=== PATIENT | male | born 1995 | race Two or more races ===

== ENCOUNTER 2025-04-15 09:15 | Inpatient (IN) | payer MEDICAID, SELFPAY ==
[2025-04-15] VITALS (9 sets, daily range): BP systolic 137–153; BP diastolic 82–93; PULSE 74–95; RESP 13–20; TEMP 36.2–37.3; O2SAT 97–100; BMI 31.6; BMI 31.5
--- NOTE | 2025-04-15 09:23 | EKG_ITS ---
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
--- NOTE | 2025-04-15 09:32 | XR_ITS ---
Examination: AP chest single view. Technique: AP portable semiupright chest single view. Date and time: February 12, 2025, 0942 hrs. Indications: Onset chest pain weakness today. Findings: Mild prominence left ventricle which may relate to the AP portable technique. No pneumonia or pulmonary edema. The osseous structures are intact. Impression: No active disease.
--- NOTE | 2025-04-15 09:32 | EDNOTE_ITS ---
ED GI Bleed RME/HPI General Chief complaint: Nausea/Vomiting/Diarrhea Stated complaint: Vomiting blood today, drinks alcohol Time Seen by Provider: 04/15/25 09:19 Arrival date/time: 04/15/25 09:15 Limitations: no limitations RME / HPI RME / HPI Narrative: DR. PHUC GRADY ED EVALUATION: 29-year-old male presents to the Emergency Department with hematemesis this morning about an hour prior to arrival. He reports consuming a 12-pack of beers and admits to cocaine use yesterday (smoked, not injected). Last drink was last night and vomited blood at about 830 AM. He denies abdominal pain, dysuria, or blood in stool, with bowel movements reported as normal. No known history of cirrhosis. No history of alcohol withdrawals. Patient also has a history of cocaine use. Related Data Allergies Allergy/AdvReac Type Severity Reaction Status Date / Time No Known Drug Allergies Allergy Verified 04/15/25 09:21 Review of Systems Review of Systems Systems Reviewed: All systems reviewed, normal except as documented Past Medical History Social History SMOKING STATUS: Current every day smoker ED Exam General Limitations: Present no limitations General appearance: Present alert, in no apparent distress and other (Worried appearing, appears uncomfortable, no resting tremor ) Head Head exam: Present atraumatic, normocephalic and normal inspection Eye Eye exam: Present normal appearance, PERRL and EOMI ENT ENT exam: Present normal exam, normal oropharynx and mucous membranes moist Neck Neck exam: Present normal inspection, full ROM and trachea midline Chest Chest inspection: Present normal inspection and symmetric chest wall rise Respiratory Respiratory exam: Present normal lung sounds bilaterally; Absent respiratory distress, wheezes or stridor Cardiovascular Cardiovascular exam: Present regular rate, normal rhythm and normal heart sounds Abdominal Exam Abdominal exam: Present soft; Absent distention, tenderness, guarding or rebound Extremities Exam Extremities exam: Present normal inspection and full ROM Back Exam Back exam: Present normal inspection and full ROM Neurological Exam Neurological exam: Present alert, oriented X3 and CN II-XII intact Psychiatric Psychiatric exam: Present normal affect and normal mood Skin Skin exam: Present warm, dry, intact and normal color Course Quality Measures none Orders Category Date Time Status Blood Sugar Check-Sandostatin Q1HR Care 04/15/25 09:41 Active EKG (ED ONLY) *Do not use* NOW Care 04/15/25 09:23 Completed Insert IV NOW Care 04/15/25 09:40 Completed NPO NOW Care 04/15/25 09:33 Active Consult to Gastroenterology Stat Cons 04/15/25 10:21 Ordered Diet NPO (NOW) Diet 04/15/25 09:33 Active CXR [XR chest 1V] Stat Exams 04/15/25 09:32 Taken EKG (ED Only) Stat Exams 04/15/25 09:23 Draft CBC Stat Lab 04/15/25 09:34 Completed CMP [Comprehensive Metabolic Panel] Stat Lab 04/15/25 09:34 Completed Drug Screen,Urine Stat Lab 04/15/25 09:32 Ordered PT [Prothrombin Time with INR] Stat Lab 04/15/25 09:34 Completed Troponin I Stat Lab 04/15/25 09:34 Completed Type and Screen Stat Lab 04/15/25 09:34 Received UA, C/S IF [Urinalysis, C/S if Indicated] Stat Lab 04/15/25 09:32 Ordered Octreotide Acet Inj [SandoSTATIN Inj] Med 04/15/25 09:32 Discontinued 50 mcg IV X1 ONE Ondansetron Inj [Zofran Inj] Med 04/15/25 09:32 Discontinued 4 mg IVP X1 ONE Pantoprazole/Ns 80Mg IV Premix [Protonix/NS 80mg IV Med 04/15/25 09:33 Discontinued Premix] 80 mg in 100 ml IV X1 Pantoprazole/Ns 80Mg IV Premix [Protonix/NS 80mg IV Med 04/15/25 09:48 Active Premix] 80 mg in 100 ml IV X1 Sodium Chloride 0.9% [Ns] 100 ml Med 04/15/25 09:45 Active Octreotide Acet Inj [SandoSTATIN Inj] 1,000 mcg IV 50 mcg/hr Sodium Chloride 0.9% [Ns] 100 ml Med 04/16/25 05:45 Pending Octreotide Acet Inj [SandoSTATIN Inj] 1,000 mcg IV 50 mcg/hr Vital Signs Vital signs: Vital Signs Temperature 99.1 F 04/15/25 09:35 Pulse Rate 92 04/15/25 09:35 Respiratory Rate 16 04/15/25 09:35 Blood Pressure 152/88 H 04/15/25 09:35 Pulse Oximetry (%) 97 04/15/25 09:35 Oxygen Delivery Method Room Air 04/15/25 09:35 GI Bleed MDM Narrative MDM Narrative:: Patient is a 29-year-old male with medical history notable for alcohol use disorder that is in Emergency Department with 1 episode of hematemesis, large- volume for the patient. Vital signs and exam as listed. Concern for esophageal bleed, Winter-Summers tear, esophagitis, gastritis among others. Patient was placed in resuscitation room, IV access obtained. Ordered labs, EKG, chest x- ray, IV Protonix, octreotide and other medications for symptom relief. Patient will benefit from evaluation by our rug cutter helper as well. My interpretation: EKG performed at 0925 hours, sinus rhythm, rate 89, normal intervals, non specific T wave changes, not a cardiac alert Labs without acute hematologic or significant metabolic abnormality, patient's LFTs not grossly abnormal. Consulted on-call rug cutter helper Dr. Ruiz, request patient be n.p.o., will perform an endoscopy today. Consulted [facility], kindly accepted patient for admission I, Lavinia Umanzor, am scribing for and in the presence of Dr. Thorne. Patient data External records reviewed:: None (no previous visits) Clinical information provided by:: patient Social determinants that could affect healthcare access:: substance use Patient has the following chronic illnesses:: Denies any PMHx, surgeries, daily medications, or known allergies. How is presenting disease/condition affected by chronic disease/condition?: no chronic disease Evaluation data The following diagnostics were reviewed and interpreted by me:: lab results, radiology exam(s) and EKG tracing(s) (My interpretation: EKG performed at 0925 hours, sinus rhythm, rate 89, normal intervals, non specific T wave changes, not a cardiac alert) Lab and/or radiology exams considered but not ordered:: none Interpretation Summary: Patient denies any tobacco, alcohol, or substance use. Medications / Prescriptions Medications or Prescriptions considered but not ordered:: none Medication administrations:: Medication Administration History Pantoprazole Sodium (Protonix/Ns 80mg Iv Premix) 80 mg in 100 mls @ 10 mls/hr IV X1 ONE Stop: 04/15/25 19:47 Last Admin: 04/15/25 10:11 Dose: 10 mls/hr Documented By: ED Octreotide Acetate 1,000 mcg/ (Sodium Chloride) 102 mls @ 5.1 mls/hr IV .Q20H PHILLIP; Protocol Stop: 04/16/25 05:44 Last Admin: 04/15/25 10:10 Dose: 50 mcg/hr, 5.1 mls/hr Documented By: ED Octreotide Acetate 1,000 mcg/ (Sodium Chloride) 102 mls @ 5.1 mls/hr IV .Q20H PHILLIP; Protocol Stop: 04/20/25 09:44 Discontinued Medications Pantoprazole Sodium (Protonix/Ns 80mg Iv Premix) 80 mg in 100 mls @ 400 mls/hr IV X1 ONE Stop: 04/15/25 09:47 Last Infusion: 04/15/25 09:53 Dose: Infused Documented By: Admin: 04/15/25 09:38 Dose: 400 mls/hr Documented By: DO Octreotide Acetate (Octreotide Acet Inj 50 Mcg/Ml Vial) 50 mcg IV X1 ONE Stop: 04/15/25 09:33 Last Admin: 04/15/25 09:42 Dose: 50 mcg Documented By: DO Ondansetron HCl (Ondansetron Inj 2 Mg/Ml Inj 2 Ml) 4 mg IVP X1 ONE; Protocol Stop: 04/15/25 09:33 Last Admin: 04/15/25 09:42 Dose: 4 mg Documented By: DO see above if any Consultations Consultation(s) initiated? (list below): Yes Diagnosis GI bleed differential diagnosis: other (Winter-Summers tear, peptic ulcer disease, and variceal bleed.) Most likely diagnosis given after review of the tests above:: Hematemesis, alcohol use disorder Admission Indicated Admission indicated?: indicated Admission Request Was there a request for admission?: Yes Admission Attestation Admission request attestation: Discussed case with Hospitalist service regarding admission. Discussed patients ED course, exam findings, labs, and radiology results. The Hospitalist [agrees] to accept the patient for admission. Disposition Plan Disposition Plan: Admit Critical Care Time Critical Care Time Critical Care Time: Yes Total Critical Care Time (min.): 45 Attestation: Due to a high probability of clinically significant, life threatening deterioration, the patient required my highest level of preparedness to intervene emergently and I personally spent this critical care time directly and personally managing the patient. This critical care time included obtaining a history; examining the patient; pulse oximetry; ordering and review of studies; arranging urgent treatment with development of a management plan; evaluation of patient's response to treatment; frequent reassessment; and, discussions with other providers. This critical care time was performed to assess and manage the high probability of imminent, life-threatening deterioration that could result in multi-organ failure. It was exclusive of separately billable procedures and treating other patients and teaching time. Please see MDM section and the rest of the note for further information on p atient assessment and treatment. Discharge Plan Plan Patient Disposition: HOME (Self Care) Prescriptions/Referrals Referrals: No Primary/Family,Physician [Primary Care Provider] - In 1 week Problem List Clinical Impression: Hematemesis of fresh blood Patient/Caregiver Discharge Instructions Print Language: Taiwanese Stand Alone Forms: Antonia Award Info., Patient Portal Info Letter
--- NOTE | 2025-04-15 09:34 | PD.EDNV ---
Nausea/Vomit./Diarrhea-RME/HPI General Chief complaint: Nausea/Vomiting/Diarrhea Stated complaint: Vomiting blood today, drinks alcohol Time Seen by Provider: 04/15/25 09:19 Arrival date/time: 04/15/25 09:15 Related Data Allergies Allergy/AdvReac Type Severity Reaction Status Date / Time No Known Drug Allergies Allergy Verified 04/15/25 09:21 Course Orders Category Date Time Status EKG (ED ONLY) *Do not use* NOW Care 04/15/25 09:23 Active NPO NOW Care 04/15/25 09:33 Active Diet NPO (NOW) Diet 04/15/25 09:33 Active CXR [XR chest 1V] Stat Exams 04/15/25 09:32 Ordered EKG (ED Only) Stat Exams 04/15/25 09:23 Draft CBC Stat Lab 04/15/25 09:32 Ordered CMP [Comprehensive Metabolic Panel] Stat Lab 04/15/25 09:32 Ordered Drug Screen,Urine Stat Lab 04/15/25 09:32 Ordered PT [Prothrombin Time with INR] Stat Lab 04/15/25 09:32 Ordered Troponin I Stat Lab 04/15/25 09:32 Ordered Type and Screen Stat Lab 04/15/25 09:32 Ordered UA, C/S IF [Urinalysis, C/S if Indicated] Stat Lab 04/15/25 09:32 Ordered Octreotide Acet Inj [SandoSTATIN Inj] Med 04/15/25 09:32 Discontinued 50 mcg IV X1 ONE Ondansetron Inj [Zofran Inj] Med 04/15/25 09:32 Discontinued 4 mg IVP X1 ONE Pantoprazole/Ns 80Mg IV Premix [Protonix/NS 80mg IV Med 04/15/25 09:33 Active Premix] 80 mg in 100 ml IV X1 Pantoprazole/Ns 80Mg IV Premix [Protonix/NS 80mg IV Med 04/15/25 09:48 Active Premix] 80 mg in 100 ml IV X1 Sodium Chloride 0.9% [Ns] 100 ml Med 04/15/25 09:33 Ordered Octreotide Acet Inj [SandoSTATIN Inj] 1,000 mcg IV 50 mcg/hr Nausea/Vomiting/Diarrhea MDM Narrative MDM Narrative:: Patient is a 29-year-old male with medical history notable for alcohol use disorder that is in Emergency Department with 1 episode of hematemesis, large-volume for the patient. Vital signs and exam as listed. Concern for esophageal bleed, Winter-Summers tear, esophagitis, gastritis among others. Patient was placed in resuscitation room, IV access obtained. Ordered labs, EKG, chest x-ray, IV Protonix, octreotide and other medications for symptom relief. Patient will benefit from evaluation by our litigation counsel as well. Patient data External records reviewed:: None Clinical information provided by:: patient Social determinants that could affect healthcare access:: alcohol use Patient has the following chronic illnesses:: See MDM How is presenting disease/condition affected by chronic disease/condition?: exacerbated by Evaluation data The following diagnostics were reviewed and interpreted by me:: lab results, radiology exam(s) and EKG tracing(s) Interpretation Summary: See MDM Medications / Prescriptions Medications / Prescriptions considered but not ordered:: None Medication administrations:: Medication Administration History Pantoprazole Sodium (Protonix/Ns 80mg Iv Premix) 80 mg in 100 mls @ 400 mls/hr IV X1 ONE Stop: 04/15/25 09:47 Pantoprazole Sodium (Protonix/Ns 80mg Iv Premix) 80 mg in 100 mls @ 10 mls/hr IV X1 ONE Stop: 04/15/25 19:47 Octreotide Acetate 1,000 mcg/ (Sodium Chloride) 102 mls @ 5.1 mls/hr IV .Q20H PHILLIP; Protocol Stop: 04/20/25 09:33 Discontinued Medications Octreotide Acetate (Octreotide Acet Inj 50 Mcg/Ml Vial) 50 mcg IV X1 ONE Stop: 04/15/25 09:33 Ondansetron HCl (Ondansetron Inj 2 Mg/Ml Inj 2 Ml) 4 mg IVP X1 ONE; Protocol Stop: 04/15/25 09:33 See above Consultations Consultation(s) initiated? (list below): Yes Discharge Plan Patient/Caregiver Discharge Instructions Print Language: Grenadian
[2025-04-15] MEDS: PANTOPRAZOLE/NS 80MG IV PREMIX 80 MG/100 ML BAG 400 MG IV (09:38)
[2025-04-15] MEDS: OCTREOTIDE ACET INJ 50 mCg/ML VIAL IV (09:42)
[2025-04-15] MEDS: ONDANSETRON INJ 2 MG/ML INJ 2 ML 4 MG IVP (09:42)
[2025-04-15 09:51] LABS: Basophils # (Auto) 0.1 Thou/mm3 (0.0-0.2); Basophils % (Auto) 1 % (0-2.5); Eosinophils # (Auto) 0.1 Thou/mm3 (0.0-0.5); Eosinophils % (Auto) 1 % (0-10); Hematocrit 41.9 % (41.0-53.0); Hemoglobin 15.0 g/dL (13.5-16.0); Immature Granulocytes Auto 0.05 Thou/mm3 (0.00-0.00); Lymphocytes # (Auto) 1.8 Thou/mm3 (1.0-4.8); Lymphocytes % (Auto) 23 % (10-50); Mean Corpuscular HGB Conc 35.8 g/dl (31.0-37.0); Mean Corpuscular Hemoglobin 31.6 pg (25.0-35.0); Mean Corpuscular Volume 88 fL (80-100); Monocytes # (Auto) 0.9 Thou/mm3 (0.0-0.8); Monocytes % (Auto) 12 % (0-12); Neutrophils # (Auto) 5.0 Thou/mm3 (1.8-7.7); Neutrophils % (Auto) 63 % (37-80); Nucleated Red Blood Cell # 0.00 Thou/mm3 (0.00-0.00); Nucleated Red Blood Cell % 0 /100 WBC (0); Platelet Count 275 Thou/mm3 (140-440); RDW Standard Deviation 39.8 fL (35.1-43.9); Red Blood Count 4.75 Miln/mm3 (4.50-5.90); White Blood Count 8.0 Thou/mm3 (3.8-10.6)
[2025-04-15 10:06] LABS: INR 1.0 (0.9-1.3); Prothrombin Time 11.3 Seconds (9.0-12.2)
[2025-04-15 10:10] LABS: Alanine Aminotransferase 69 U/L (10-49); Albumin, Serum 4.8 gm/dL (3.5-5.0); Albumin/Globulin Ratio 2.1 (1.2-2.2); Alkaline Phosphatase 74 U/L (46-116); Anion Gap 12 (7-16); Aspartate Amino Transferase 35 U/L (0-34); BUN/Creatinine Ratio 10 Ratio (12-20); Bilirubin,Total 0.3 mg/dL (0.3-1.2); Blood Urea Nitrogen 9 mg/dL (9-23); Calcium 9.1 mg/dL (8.3-10.6); Calcium (Corrected) 9.1 mg/dL (8.5-10.1); Carbon Dioxide 23.2 mMol/L (20.0-31.0); Chloride 108 mMol/L (98-107); Creatinine (Component) 0.9 mg/dL (0.6-1.3); Estimated Creatinine Clearance 124.5 mL/min (>60); Globulin 2.3 gm/dL (2.3-3.5); Glucose 112 mg/dL (74-106); Osmolality,Calculated 284 (275-295); Potassium 3.7 mMol/L (3.4-5.1); Sodium 143 mMol/L (136-145); Total Protein 7.1 gm/dL (5.7-8.2); Troponin I < 0.002 ng/mL (0.0-0.045); eGFR > 60 See Note
[2025-04-15] MEDS: OCTREOTIDE ACET INJ 1,000 MCG in SODIUM CHLORIDE 0.9% 100 ML 5.1 MCG IV (10:10)
[2025-04-15] MEDS: PANTOPRAZOLE/NS 80MG IV PREMIX 80 MG/100 ML BAG 10 MG IV (10:11)
[2025-04-15 12:11] LABS: Collection Type, Urine Clean Catch; Squamous Epithelial Cell,Urine 0 /hpf (0-5)
[2025-04-15 12:16] LABS: Bilirubin,Urine Negative (Negative); Blood,Urine Negative (Negative); Clarity,Urine Clear (Clear/Hazy); Color,Urine Lt-Yellow (Lt Yel-Yel); Culture Indicated,Urine Not Indicated; Glucose, Urine Negative (Negative); Ketones,Urine Negative (Negative); Leukocyte Esterase,Urine Negative (Negative); Nitrite,Urine Negative (Negative); PH,Urine 6.0 (5.0-7.0); Protein,Urine Negative (Neg - Trace); RBC,Urine 1 /hpf (0-3); Specific Gravity,Urine 1.021 (1.001-1.035); Urobilinogen,Urine Negative mg/dL (0.0-1.0); WBC,Urine 2 /hpf (0-5)
[2025-04-15 12:50] LABS: Amphetamine/Methamp Scrn,U Negative (Negative); Barbiturate Screen,Urine Negative (Negative); Benzodiazepines Screen,Urine Negative (Negative); Benzoylecgonine Screen, Ur Positive (Negative); Fentanyl Screen,Urine Negative (Negative); Opiate Screen,Urine Negative (Negative); THC Screen,Urine Negative (Negative)
--- NOTE | 2025-04-15 13:19 | ESHP_ITS ---
Documentation for date of: 04/15/25 [facility] History of Present Illness Chief complaint: Hematemesis History of present illness: This patient is a 29 year old male with no known past medical history who presented to [facility] ED on 04/15 from home with a chief complaint of hematemesis. The patient was admitted for management of upper GI bleed. The patient states that on the day before, the patient drank more alcohol than usual, about 12-16 bottles of beer, and when he woke up this morning, the patient vomited and noticed a small amount of blood in his vomit. The patient with then proceeded to vomit more for total of 4 times. According to the patient, this has never happened before, and he was not having any vomiting the day before. The patient does endorse drinking about 5-10 bottles of beer daily and has done so for about 4 to 5 years. The patient states that he has not had anything to eat today as result of this vomiting. The patient does have plans to go to the [facility] for her scheduled appointment tomorrow, and he cannot reschedule as he has already rescheduled previously. The patient is hoping to leave early tomorrow morning, or tonight if possible. Patient denies any fevers, chills, cough, chest pain, throat pain, generalized weakness, and abdominal pain. Patient also denies anxiety as well as any visual, auditory, and tactile hallucinations. ED Course: Initial vitals were significant for blood pressure of 152/88. Initial labs significant for AST 35 and ALT 69. Hemoglobin unremarkable at 13.0 and troponin less than 0.002. Urine toxicology positive for cocaine. Chest x-ray negative. Patient was started on IV Protonix and octreotide. GI was consulted, who plans to do endoscopy later today. 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 Skin: Warm, dry, intact. Head: Normocephalic, atraumatic. Eye: Slightly injected conjunctiva, PERRL. Cardiovascular: Regular rate and rhythm, no murmur, +S1/S2. Respiratory: Lungs are clear to auscultation, respirations unlabored, no crackles, no wheezing. Gastrointestinal: Soft, nontender, non-distended. No guarding or rebound tenderness. Extremities: No edema, no cyanosis, no clubbing. Neuro: No focal deficits observed. Conversant, moving all extremities. No overt cerebellar signs/incoordination. Psychiatric: Cooperative, appropriate affect. Results: Labs 04/15/25 09:34 04/15/25 09:34 Labs: Short CBC 04/15/25 Range/Units 09:34 WBC 8.0 (3.8-10.6) Thou/mm3 Hgb 15.0 (13.5-16.0) g/dL Hct 41.9 (41.0-53.0) % Plt Count 275 (140-440) Thou/mm3 BMP 04/15/25 09:34 Sodium 143 Potassium 3.7 Chloride 108 H Carbon Dioxide 23.2 BUN 9 Creatinine 0.9 Glucose 112 H Calcium 9.1 Cardiac Enzymes 04/15/25 Range/Units 09:34 Troponin I < 0.002 (0.0-0.045) ng/mL Liver Function 04/15/25 Range/Units 09:34 Total Bilirubin 0.3 (0.3-1.2) mg/dL AST 35 H (0-34) U/L ALT 69 H (10-49) U/L Alkaline Phosphatase 74 (46-116) U/L Albumin 4.8 (3.5-5.0) gm/dL Urine 04/15/25 Range/Units 12:00 Urine Color Lt-Yellow (Lt Yel-Yel) Urine Clarity Clear (Clear/Hazy) Urine pH 6.0 (5.0-7.0) Ur Specific [place] 1.021 (1.001-1.035) Urine Protein Negative (Neg - Trace) Urine Glucose (UA) Negative (Negative) Quality Measures Quality Measures VTE prophylaxis Medications Home Medications and Allergies Home Medications ?Medication ?Instructions ?Recorded ?Confirmed ?Type No Known Home Medications 04/15/2503/20 History Allergies Allergy/AdvReac Type Severity Reaction Status Date / Time No Known Drug Allergies Allergy Verified 04/15/25 09:21 Visit Medications Diazepam (Diazepam Inj 5 Mg/Ml Vial 2 Ml) 2.5 mg IVP Q2HR PRN PRN Reason: CIWA SCORE 8-13 Stop: 04/20/25 10:30 Diazepam (Diazepam Inj 5 Mg/Ml Vial 2 Ml) 5 mg IVP Q2HR PRN PRN Reason: CIWA SCORE 14-19 Stop: 04/20/25 10:30 Diazepam (Diazepam Inj 5 Mg/Ml Vial 2 Ml) 10 mg IVP Q2HR PRN PRN Reason: CIWA SCORE 20-25 Stop: 04/20/25 10:30 Pantoprazole Sodium (Protonix/Ns 80mg Iv Premix) 80 mg in 100 mls @ 10 mls/hr IV X1 ONE Stop: 04/15/25 19:47 Last Admin: 04/15/25 10:11 Dose: 10 mls/hr Octreotide Acetate 1,000 mcg/ (Sodium Chloride) 102 mls @ 5.1 mls/hr IV .Q20H PHILLIP; Protocol Stop: 04/16/25 05:44 Last Admin: 04/15/25 10:10 Dose: 50 mcg/hr, 5.1 mls/hr Octreotide Acetate 1,000 mcg/ (Sodium Chloride) 102 mls @ 5.1 mls/hr IV .Q20H PHILLIP; Protocol Stop: 04/20/25 09:44 Ondansetron HCl (Ondansetron Inj 2 Mg/Ml Inj 2 Ml) 4 mg IVP Q6H PRN; Protocol PRN Reason: NAUSEA OR VOMITING Stop: 05/15/25 10:30 Discontinued Medications Pantoprazole Sodium (Protonix/Ns 80mg Iv Premix) 80 mg in 100 mls @ 400 mls/hr IV X1 ONE Stop: 04/15/25 09:47 Last Infusion: 04/15/25 09:53 Dose: Infused Octreotide Acetate (Octreotide Acet Inj 50 Mcg/Ml Vial) 50 mcg IV X1 ONE Stop: 04/15/25 09:33 Last Admin: 04/15/25 09:42 Dose: 50 mcg Ondansetron HCl (Ondansetron Inj 2 Mg/Ml Inj 2 Ml) 4 mg IVP X1 ONE; Protocol Stop: 04/15/25 09:33 Last Admin: 04/15/25 09:42 Dose: 4 mg Assessment & Plan Plan This patient is a 29 year old male with no known past medical history who presented to [facility] ED on 04/15 from home with a chief complaint of hematemesis. The patient was admitted for management of upper GI bleed. #GI bleed, upper Patient presented to ED with an episode of blood in vomit x 4 started on the morning of the patient's admission date. Patient has a long history of excessive alcohol use and was drinking more than usual the day before. Patient does not appear symptomatic at this time and hemoglobin on admission was stable. Did not appear to be having any bloody vomitus on admission. DDx: Esophageal varices, Winter-Summers tear, peptic ulcer, malignancy in upper GI tract Plan: GI consulted, appreciate recommendations, plans for endoscopy on 04/15 Patient n.p.o. Protonix drip Octreotide drip 2 large-bore IVs Continue to monitor, will transfuse PRBC if hemoglobin less than 7 per protocol #Transaminitis Patient noted to have elevated LFTs on admission. While the patient does have a history of excessive alcohol use, the pattern does not necessarily fit transaminitis secondary to chronic alcohol use. Patient does not have any known history of cirrhosis at time of admission. Plan: To assess for possible cirrhosis Hepatitis panel ordered, pending Continue to monitor daily #Hypertension Patient does not have any history of hypertension noted, but does use cocaine, which may be the cause of the patient's elevated blood pressure during ED stay. Plan: Continue to monitor Will start antihypertensives if patient continues to be consistently hypertensive #Alcohol abuse Patient states that he drinks on average about 5-10 bottles of beer daily and has done so for about the past 4 to 5 years. Patient's last drink was the night prior to admission. On admission, patient denied any auditory, visual, and tactile hallucinations. Also denies any anxiousness on admission. Plan: [facility] protocol Will plan to have social sciences department chair certified alcohol and drug counselor the patient prior to discharge #Cocaine use Patient has a history of cocaine use for unspecified amount of time. Patient was noted to be positive for cocaine on urine toxicology on admission. Cocaine use may be contributing to why the patient presented with hematemesis during this admission. Plan: Counseled patient on ceasing cocaine use Will have social sciences department chair certified alcohol and drug counselor the patient prior to discharge DVT Prophylaxis: SCDs GI Prophylaxis: Protonix & Octreotide Bowel: N/A Diet: NPO Duffy: N/A Lines: Peripheral IV Antibiotics: N/A Code Status: FULL Reason for Hospitalization: Upper GI bleed Other Barriers to Discharge: Endoscopy Patient plan of care was discussed with attending physician Dr. Francisco Salguero, PGY1 Attending Provider Attestation/Addendum After examination of the patient and review of the clinical data I feel that this patient needs admission to the hospital for further treatment/evaluation. I have discussed and was present for the essential components of the history, physical examination, diagnosis, and treatment plan with the resident. I agree with the patient's care as documented by the resident and amended herein by me. Gera Singh DO. Although this document has been carefully reviewed, there may still be some phonetic and other typographical errors. These errors are purely grammatical due to imperfections in the software program and should not be construed in any way to compromise the substance of the patient's medical care during this visit. Patient seen and evaluated in the ED. Patient admitted for upper GI bleed, possibly secondary to varices versus gastric or duodenal ulcer from copious alcohol use. Patient placed on CIWA protocol, started on ceftriaxone, octreotide and Protonix drip. Gastroenterology consulted in the ED, patient will likely have a EGD performed. Will transfuse as necessary make sure 2 large-bore IVs are not placed and continue monitor closely.
--- NOTE | 2025-04-15 13:46 | XR_ITS ---
Examination: Abdomen sonogram, Limited Date and time of exam: April 15, 2025 1840 hrs. Indications: Elevated liver function tests on laboratory examination today Technique: Real-time sawyer scale transabdominal sonographic images of the upper abdomen obtained. Findings: Normal gallbladder. Normal common bile duct 0.4 cm Pancreatic head 2.3 cm Liver 15.8 cm fatty infiltration no focal liver lesions Normal hepatopedal portal venous flow Patent IVC Impression: Normal gallbladder Liver normal size fatty infiltration no focal liver lesions
[2025-04-15] MEDS: cefTRIAXone/D5w 1gm IV premix 1 GM/50 ML BAG IV (15:10)
--- NOTE | 2025-04-15 19:15 | ESCONSULT_ITS ---
HPI Data of Consult Requesting Physician: Miky Singh DO Primary Care Provider: Physician No Primary/Family Consult Narrative Reason for consult: Hematemesis History of present illness: 29-year-old male present to the emergency room with episode of hematemesis this morning at 830 Patient drinks about 12 beers a day and also has snorted cocaine yesterday cc:: cc: Miky Singh DO Review of Systems Review of Systems Systems Reviewed: All systems reviewed, normal except as documented Meds Home Medications and Allergies Home Medications ?Medication ?Instructions ?Recorded ?Confirmed ?Type No Known Home Medications 04/15/2503/20 History Allergies Allergy/AdvReac Type Severity Reaction Status Date / Time No Known Drug Allergies Allergy Verified 04/15/25 09:21 Exam Vital Signs Temp Pulse Resp BP Pulse Ox O2 Del Method 97.1 F 87 20 137/83 H 99 Room Air 04/15/25 16:00 04/15/25 16:00 04/15/25 16:00 04/15/25 16:00 04/15/25 16:00 04/15/25 16:00 Constitutional Comments: Alert oriented Routine Respiratory Exam Comments: Normal to auscultation Routine Abdominal Exam Comments: Soft nontender Results Labs 04/15/25 09:34 04/15/25 09:34 Labs: Short CBC 04/15/25 Range/Units 09:34 WBC 8.0 (3.8-10.6) Thou/mm3 Hgb 15.0 (13.5-16.0) g/dL Hct 41.9 (41.0-53.0) % Plt Count 275 (140-440) Thou/mm3 BMP 04/15/25 09:34 Sodium 143 Potassium 3.7 Chloride 108 H Carbon Dioxide 23.2 BUN 9 Creatinine 0.9 Glucose 112 H Calcium 9.1 Cardiac Enzymes 04/15/25 Range/Units 09:34 Troponin I < 0.002 (0.0-0.045) ng/mL Liver Function 04/15/25 Range/Units 09:34 Total Bilirubin 0.3 (0.3-1.2) mg/dL AST 35 H (0-34) U/L ALT 69 H (10-49) U/L Alkaline Phosphatase 74 (46-116) U/L Albumin 4.8 (3.5-5.0) gm/dL Urine 04/15/25 Range/Units 12:00 Urine Color Lt-Yellow (Lt Yel-Yel) Urine Clarity Clear (Clear/Hazy) Urine pH 6.0 (5.0-7.0) Ur Specific [place] 1.021 (1.001-1.035) Urine Protein Negative (Neg - Trace) Urine Glucose (UA) Negative (Negative) Assessment and Plan Additional Assessment & Plan Additional Plan: Hematemesis in the setting of chronic liver disease secondary to moderate to severe consumption of alcohol as well as drug use with cocaine Plan Agree with octreotide infusion and IV Protonix Serial CBC Consent obtained for fiberoptic esophagogastroduodenoscopy with possible biopsy possible therapeutic intervention under intravenous moderate sedation scheduled for tomorrow N.p.o. midnight mario alberto Thank you for the opportunity to participate in care of this patient
[2025-04-15 21:14] LABS: Hepatitis A Antibody IgM Non Reactive (Non React); Hepatitis B Core Antibody IgM Non Reactive (Non React); Hepatitis B Surface Antigen Non Reactive (Non React); Hepatitis C Antibody Non Reactive (Non React)
[2025-04-16] VITALS (16 sets, daily range): BP systolic 129–153; BP diastolic 74–102; PULSE 67–86; RESP 12–98; TEMP 36–36.7; O2SAT 93–100
[2025-04-16] MEDS: OCTREOTIDE ACET INJ 1,000 MCG in SODIUM CHLORIDE 0.9% 100 ML 5.1 MCG IV (05:06)
[2025-04-16 05:43] LABS: Basophils # (Auto) 0.1 Thou/mm3 (0.0-0.2); Basophils % (Auto) 1 % (0-2.5); Eosinophils # (Auto) 0.2 Thou/mm3 (0.0-0.5); Eosinophils % (Auto) 4 % (0-10); Hematocrit 44.2 % (41.0-53.0); Hemoglobin 15.1 g/dL (13.5-16.0); Immature Granulocytes Auto 0.02 Thou/mm3 (0.00-0.00); Lymphocytes # (Auto) 1.4 Thou/mm3 (1.0-4.8); Lymphocytes % (Auto) 23 % (10-50); Mean Corpuscular HGB Conc 34.2 g/dl (31.0-37.0); Mean Corpuscular Hemoglobin 30.6 pg (25.0-35.0); Mean Corpuscular Volume 90 fL (80-100); Monocytes # (Auto) 0.7 Thou/mm3 (0.0-0.8); Monocytes % (Auto) 13 % (0-12); Neutrophils # (Auto) 3.5 Thou/mm3 (1.8-7.7); Neutrophils % (Auto) 59 % (37-80); Nucleated Red Blood Cell # 0.00 Thou/mm3 (0.00-0.00); Nucleated Red Blood Cell % 0 /100 WBC (0); Platelet Count 274 Thou/mm3 (140-440); RDW Standard Deviation 39.5 fL (35.1-43.9); Red Blood Count 4.93 Miln/mm3 (4.50-5.90); White Blood Count 5.9 Thou/mm3 (3.8-10.6)
[2025-04-16 06:18] LABS: Alanine Aminotransferase 58 U/L (10-49); Albumin, Serum 4.3 gm/dL (3.5-5.0); Albumin/Globulin Ratio 1.9 (1.2-2.2); Alkaline Phosphatase 65 U/L (46-116); Anion Gap 13 (7-16); Aspartate Amino Transferase 31 U/L (0-34); BUN/Creatinine Ratio 11 Ratio (12-20); Bilirubin,Total 0.9 mg/dL (0.3-1.2); Blood Urea Nitrogen 11 mg/dL (9-23); Calcium 9.5 mg/dL (8.3-10.6); Calcium (Corrected) 9.5 mg/dL (8.5-10.1); Carbon Dioxide 26.3 mMol/L (20.0-31.0); Chloride 103 mMol/L (98-107); Creatinine (Component) 1.0 mg/dL (0.6-1.3); Estimated Creatinine Clearance 111.9 mL/min (>60); Globulin 2.3 gm/dL (2.3-3.5); Glucose 131 mg/dL (74-106); Magnesium 2.3 mg/dL (1.6-2.6); Osmolality,Calculated 284 (275-295); Phosphorous 4.1 mg/dL (2.4-5.1); Potassium 3.8 mMol/L (3.4-5.1); Sodium 142 mMol/L (136-145); Total Protein 6.6 gm/dL (5.7-8.2); eGFR > 60 See Note
--- NOTE | 2025-04-16 08:38 | SUR.PHASEI ---
pt received from OR in recovery bay 1. pt asleep but responds to voice, breathing unlabored on room air. v/s stable. report received from Giselle WATTS.
--- NOTE | 2025-04-16 09:08 | SUR.PHASEI ---
pt awake and alert, breathing unlabored on room air. v/s stable. report called to Valentine WATTS. pt will be transferred to room at this time.
--- NOTE | 2025-04-16 09:28 | PC.SS ---
Follow up note: Endoscopy pending.
--- NOTE | 2025-04-16 11:48 | ESDS_ITS ---
Planned Discharge Date 04/16/25 DS: Providers Provider Date of admission: 04/15/25 10:31 Primary care physician: Physician No Primary/Family Admitting Provider: Miky Singh DO Attending Provider on Admission: Miky Singh DO Consults: 04/15/25 10:21 Consult to Gastroenterology Stat Comment: Consulting Provider: Luis Ruiz 04/15/25 18:35 Consult to Gastroenterology Routine Comment: Consulting Provider: Brad Ruiz Attending Provider on DC: Miky Singh DO Discharging Provider: Mis Chacon DO DS: Diagnosis Problem List Completed Was Problem List Reviewed/Reconciled?: Yes Hospital Course Hospital Course Hospital course: Summary: This patient is a 29 year old male with no known past medical history who presented to [facility] ED on 04/15 from home with a chief complaint of hematemesis. The patient was admitted for management of upper GI bleed, likely secondary to excessive alcohol use. EGD 04/16 showed grade I esophageal varices and a few non bleeding erosions at the GE junction, as well as non erosive gastritis. No episodes of hematemasis, bloody stools, or melena during hospitalization. Hemoglobin has been stable. CIWA was unremarkable overnight, no symptoms of withdrawal. Patient was medically stable upon discharge, sent home with 30 day supple of Protonix 40 mg daily. Counseled extensively on cessation of alcohol and cocaine use. Discharge Recommendations: -Follow-up with PCP within 1 week of discharge. If you do not have appointment, please follow-up with the [facility] with Dr. Castellanos. Call [phone] to make an appointment. -Start to take Pantoprazole 40mg once daily for 30days -Stop drinking Alcohol -Return to ED if symptoms persist or return Hospital Diagnoses: #GI bleed, upper #Transaminitis #Hypertension #Alcohol abuse #Cocaine use Disposition: Safe discharge home. Patient plan of care was discussed with the attending physician, Dr. Singh. Mis Chacon, PGY-1 Time Spent with Patient Time attestation: Total time spent providing and/or coordinating discharge services: Time spent: Greater than 30 minutes Exam Vital Signs Temp Pulse Resp BP Pulse Ox O2 Del Method O2 Flow Rate 98 F 67 19 147/92 H 95 Room Air 30 04/16/25 09:05 04/16/25 09:05 04/16/25 09:05 04/16/25 09:05 04/16/25 09:05 04/16/25 08:00 04/16/25 08:30 Narrative Exam Physical Exam: General: Alert, no acute distress. Skin: Warm, dry, intact. Head: Normocephalic, atraumatic. Eye: PERRL. Cardiovascular: Regular rate and rhythm, no murmur, +S1/S2. Respiratory: Lungs are clear to auscultation, respirations unlabored, no crack les, no wheezing. Gastrointestinal: Soft, nontender, non-distended. No guarding or rebound tenderness. Extremities: No edema, no cyanosis, no clubbing. Neuro: No focal deficits observed. Conversant, moving all extremities. No overt cerebellar signs/incoordination. Psychiatric: Cooperative, appropriate affect. Discharge Plan Plan Patient Disposition: HOME (Self Care) Patient condition on transfer: Stable Care Plan Goals: -Follow-up with Primary care provider within 1 week of discharge. If you do not have appointment, please follow-up with the [facility] with Dr. Castellanos. Call [phone] to make an appointment. -Start to take Pantoprazole 40mg once daily for 30days -Stop drinking Alcohol -Return to ED if symptoms persist or return - Realice jessie moisés de seguimiento con child m?dico de cabecera dentro de jessie semana despu?s del [place]. Si no tiene moisés, por favor, programe jessie moisés de seguimiento en el centro cl?john paul acad?[place] con la Dra. Castellanos. Llame al [phone] para programar jessie moisés. - Comience a dave pantoprazol 40 mg jessie vez al d?a stephanie 30 d?as. - Deje de consumir alcohol. - Regrese a urgencias si los s?ntomas persisten o reaparecen. Prescriptions/Referrals Prescriptions/Med Rec: New pantoprazole 40 mg tablet,delayed release (DR/EC) 40 mg PO QDAY Qty: 30 0RF Referrals: No Primary/Family,Physician [Primary Care Provider] Patient/Caregiver Discharge Instructions Education Materials: Bleeding Gastrointestinal, Upper GI Endoscopy, ED Upper GI Bleeding (Stable) Print Language: Afghan Stand Alone Forms: Antonia Award Info., Patient Portal Info Letter Discharge Order Discharge Orders: Discharge (Routine); Ordered 04/16/25 Ordered By: Harry Castellanos Quality Discharge Quality Measures VTE prophylaxis MD Attestestation MD Attestation I have discussed and was present for the essential components of the discharge history, physical examination, diagnosis, and discharge treatment plan with the resident. I agree with the patient's discharge care as documented by the resident and amended herein by me. Gera Singh DO. The patient understood all discharge instructions, all questions were answered satisfactorily. The patient was instructed to return to the Emergency Department is symptoms worsened or persisted. Although this document has been carefully reviewed, there may still be some phonetic and other typographical errors. These errors are purely grammatical due to imperfections in the software program and should not be construed in any way to compromise the substance of the patient's medical care during this visit.
--- NOTE | 2025-04-16 12:51 | PC.SS ---
SS met with patient his regarding d/c plan. Pt is alert/oriented. Pt was admitted for GI Bleed. Pt confirmed demographic and contact information is correct on facesheet. Pt resides alone. Pt ambulates independently without assistance or DME. Pt is ok with all ADLs. 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 Patient?s pharmacy of choice is. Patient's tox screen was positive for cocaine and alcohol use. Pt states he usually consumes alcohol on a daily bases (5-10 beers) and recently used cocaine. Pt explained his younger brother passes away 2 weeks ago and he has been morning his loss. Patient's family is in [place]. SS spoke to pt about grief counseling and pt is agreeable. SS provided pt with [facility] [employer] which contains meetings for grieving families. Pt refuses community resource for drugs/alcohol. Pt named his friend, Melvin Pressley medical decision maker if he is unable. Patient?s choice is to return home upon d/c. Pt states he does not have PCP. Pt states he is not connected to a PCP. SS offered to arrange a follow up appointment with PCP in the area or at [facility] but pt refused. SS called pt registration to update patient's facesheet with his friend's contact information. D/C plan: Return home Next of Kin: Melvin Pressley, friend, phone# [phone] PCP: Pt will establish on his own Address: Correct on facesheet
== END 2025-04-16 13:49 | disposition home or self-care (01) | DRG 242 ==
LOC: SERX 10:52 → SERHOLD 10:58 → S3NX 14:07
PROVIDERS: Specialist; Admitting Provider Student in an Organized Health Care Education/Training Program; Emergency Provider Emergency Medicine; Visit Provider Student in an Organized Health Care Education/Training Program
PROC: 0DJ08ZZ Inspection of Upper Intestinal Tract, Via Natural or Artificial Opening Endoscopic (ICD-10-PCS; CPT 43239; principal; 2025-04-16 08:00)
DX: K22.11 Ulcer of esophagus with bleeding (principal); I10 Essential (primary) hypertension; F10.10 Alcohol abuse, uncomplicated; F14.90 Cocaine use, unspecified, uncomplicated; F17.200 Nicotine dependence, unspecified, uncomplicated; K29.71 Gastritis, unspecified, with bleeding; I85.00 Esophageal varices without bleeding; K70.9 Alcoholic liver disease, unspecified
CPT/HCPCS: 36415; 71045; 76705; 80053; 80074; 80307; 81001; 83735; 84100; 84484; 85025; 85610; 86850; 86900; 86901; 93005; 93225; 96374; 96375; 99284; A4649; J0696; J1200; J2250; J2354; J2405; J3010; J3490; J7050; A9270